=== PATIENT | female | born 1935 | race Caucasian/White ===

== ENCOUNTER 2019-08-23 02:02 | Day surgery (SDC) | payer MEDICARE, SELFPAY ==
[2019-08-22 12:03] VITALS: BMI 26.2
[2019-08-23] MEDS: LACTATED RINGERS 1,000 ML 150 ML IV CONT (10:54)
--- NOTE | 2019-08-23 10:59 | WPDANESEPPF ---
Anes - Initial Pre Proc Eval Procedure: Operation Date: 08/23/19 11:00 Proposed Procedures p Colonoscopy - Baron Bond MD Date/Time: 08/23/19 10:59 Surgeon: Baron Bond MD Pre Op Diagnosis: Rectal Bleeding Patient Data Age: 84 Gender: F Height: 5 ft 2 in Weight: 65 kg Allergies Allergy/AdvReac Type Severity Reaction Status Date / Time codeine Allergy Unknown Chills Verified 08/22/19 11:55 Sulfa (Sulfonamide Allergy Unknown Swelling Verified 08/22/19 11:55 Antibiotics) Home Medications Medication Instructions Recorded Confirmed Type levothyroxine 50 mcg tablet 50 mcg PO DAILY #90 tablet 07/06/19 08/22/19 Rx aspirin 81 mg tablet 81 mg PO DAILY 07/14/19 08/22/19 History labetalol 100 mg tablet 100 mg PO BID #180 tablet 08/15/19 08/22/19 Rx losartan 50 mg-hydrochlorothiazide 1 tablet PO BID #180 tablet 08/15/19 08/22/19 Rx 12.5 mg tablet amlodipine 5 mg tablet 5 mg PO DAILY #30 tablet 08/17/19 08/22/19 Rx lovastatin 20 mg PO HS 08/22/19 08/22/19 History magnesium 250 mg PO DAILY 08/22/19 08/22/19 History Patient hx anesthesia problems: none Family hx anesthesia problems: none PMFSH Past Medical History Medical History HTN (hypertension) Family History Family History Mother Hypertension, Onset Age: 94 Sibling Family history of diabetes mellitus in first degree relative Carcinoma of colon, Onset Age: 81 Patient's sister is Father Family history of coronary artery disease, Onset Age: 66 Patient's father is Social History Social History Smoking status: Never smoker Second hand tobacco smoke exposure: No Alcohol intake: never Anes - Eval Final PreProcedure Day of Procedure 08/23/19 10:59 Patient weight: overweight Heart: regular rate and rhythm Lungs: clear to auscultation Airway: Mallampati scale class II Neurological: alert and oriented Last oral intake: >/= 8 hours ASA classification: III Emergent: no Anesthetic plan: proceed Anesthesia type and monitoring: general GIVS and standard monitoring Informed Consent: The patient's anesthetic plan and its attendant risks and benefits were discussed with the patient/family/POA. Questions were solicited and answers provided to the satisfaction of the patient/family/POA.
[2019-08-23] MEDS: ONDANSETRON INJ 4 MG/2 ML VIAL IV PUSH (11:02)
[2019-08-23 11:05] VITALS: BP 141/61; PULSE 86; RESP 18; TEMP 36.6; O2SAT 97; BMI 25.8
--- NOTE | 2019-08-23 11:37 | WPDHPUPDATE1 ---
History and Physical Update Update Date/Time: 08/23/19 11:37 History and Physical has been reviewed, including an updated exam of the patient. There are NO changes in the patient's condition. Risks, benefits, and alternatives have been discussed and questions answered. Patient agrees to proceed with procedure.
[2019-08-23 12:13] VITALS: BP 116/39; PULSE 75; RESP 17; O2SAT 99
[2019-08-23 12:23] VITALS: BP 113/38; PULSE 72; RESP 20; O2SAT 100
[2019-08-23 12:33] VITALS: BP 121/47; PULSE 72; RESP 24; O2SAT 100
== END 2019-08-23 12:48 | disposition home or self-care (01) ==
PROVIDERS: PCP Emergency Medicine; Visit Provider Internal Medicine Gastroenterology
PROC: 0DJD8ZZ Inspection of Lower Intestinal Tract, Via Natural or Artificial Opening Endoscopic (ICD-10-PCS; CPT 45378; principal; 2019-08-23 11:00)
DX: K62.5 Hemorrhage of anus and rectum (principal); K57.30 Diverticulosis of large intestine without perforation or abscess without bleeding; K64.8 Other hemorrhoids; K64.4 Residual hemorrhoidal skin tags; I10 Essential (primary) hypertension; Z79.82 Long term (current) use of aspirin
CPT/HCPCS: 45378; J2405; J2704; J7120

== ENCOUNTER 2020-02-05 07:49 | Outpatient (CLI) | payer MEDICARE, SELFPAY ==
[2020-02-05 08:32] LABS: Alanine Aminotransferase 25 U/L (4-35); Albumin Level 4.8 g/dL (3.5-5.1); Alkaline Phosphatase 100 U/L (38-126); Anion Gap 13.2 mmol/L (7-16); Aspartate Amino Transferase 27 U/L (14-36); Bilirubin,Total 0.4 mg/dL (0.2-1.3); Blood Urea Nitrogen 19 mg/dL (7-17); Calcium 9.7 mg/dL (8.4-10.2); Carbon Dioxide 28 mmol/L (22-30); Chloride 97 mmol/L (98-107); Cholesterol 178 mg/dL (0-200); Estimated Glomerular Filt Rate 60; Glucose 124 mg/dL (65-105); HDL Direct 42 mg/dL; Potassium 4.2 mmol/L (3.4-5.0); Sodium 134 mmol/L (137-145); Triglycerides 296 mg/dL (<150)
[2020-02-05 08:43] LABS: LDL Cholesterol Direct 80 mg/dL
== END 2020-02-05 07:50 | disposition home or self-care (01) ==
LOC: ANHLAB 07:52
PROVIDERS: PCP Emergency Medicine; Visit Provider Emergency Medicine
DX: E78.5 Hyperlipidemia, unspecified (principal)
CPT/HCPCS: 36415; 80053; 80061

== ENCOUNTER 2020-05-21 07:36 | Outpatient (CLI) | payer MEDICARE, SELFPAY ==
[2020-05-21 08:56] LABS: Alanine Aminotransferase 26 U/L (4-35); Albumin Level 4.7 g/dL (3.5-5.1); Alkaline Phosphatase 100 U/L (38-126); Anion Gap 8 mmol/L (8-16); Aspartate Amino Transferase 30 U/L (14-36); Bilirubin,Total 0.4 mg/dL (0.2-1.3); Blood Urea Nitrogen 18 mg/dL (7-17); Calcium 10.4 mg/dL (8.4-10.2); Carbon Dioxide 32 mmol/L (22-30); Chloride 97 mmol/L (98-107); Cholesterol 163 mg/dL (0-200); Estimated Glomerular Filt Rate 53; Glucose 125 mg/dL (65-105); Potassium 4.1 mmol/L (3.4-5.0); Sodium 137 mmol/L (137-145)
== END 2020-05-21 07:37 | disposition home or self-care (01) ==
PROVIDERS: PCP Emergency Medicine; Referring Provider Internal Medicine Cardiovascular Disease; Visit Provider Emergency Medicine
DX: I10 Essential (primary) hypertension (principal); E78.2 Mixed hyperlipidemia
CPT/HCPCS: 36415; 80053; 82465

== ENCOUNTER 2020-09-03 07:19 | Outpatient (CLI) | payer MEDICARE, SELFPAY ==
[2020-09-03 07:55] LABS: Alanine Aminotransferase 21 U/L (4-35); Albumin Level 4.6 g/dL (3.5-5.1); Alkaline Phosphatase 87 U/L (38-126); Anion Gap 6 mmol/L (8-16); Aspartate Amino Transferase 28 U/L (14-36); Bilirubin,Total 0.4 mg/dL (0.2-1.3); Blood Urea Nitrogen 17 mg/dL (7-17); Calcium 9.8 mg/dL (8.4-10.2); Carbon Dioxide 34 mmol/L (22-30); Chloride 99 mmol/L (98-107); Cholesterol 173 mg/dL (0-200); Estimated Glomerular Filt Rate 60; Glucose 119 mg/dL (65-105); HDL Direct 46 mg/dL; Potassium 4.3 mmol/L (3.4-5.0); Sodium 139 mmol/L (137-145); Triglycerides 177 mg/dL (<150)
[2020-09-03 07:57] LABS: Hemoglobin A1C 5.6 % (<5.7)
[2020-09-03 08:06] LABS: LDL Cholesterol Direct 91 mg/dL
== END 2020-09-03 07:20 | disposition home or self-care (01) ==
PROVIDERS: PCP Emergency Medicine; Referring Provider Internal Medicine Cardiovascular Disease; Visit Provider Emergency Medicine
DX: E78.5 Hyperlipidemia, unspecified (principal); E11.9 Type 2 diabetes mellitus without complications; I10 Essential (primary) hypertension
CPT/HCPCS: 36415; 80053; 80061; 83036

== ENCOUNTER 2020-09-09 11:01 | Outpatient (CLI) | payer MEDICARE, SELFPAY ==
--- NOTE | ~2020-09-09 | US_ITS ---
EXAMINATION: US venous doppler LE EXAM DATE: 09/09/2020 11:43 INDICATION: Right calf pain. TECHNIQUE: Multiple grayscale, color flow and Doppler images of the right lower extremity deep venous system were obtained and reviewed. Comparison is made to prior examination from 06/28/2013. FINDINGS: The right common femoral, femoral and profunda veins demonstrate normal color flow, respira tory variation, augmentation and compressibility. Compressibility, color flow confirmed within the r ight popliteal, posterior tibial, peroneal, and greater saphenous veins. IMPRESSION: 1. No right lower extremity deep venous thrombosis. Reviewed, dictated and finalized at location A. ET TECHNICIAN
== END 2020-09-09 11:02 | disposition home or self-care (01) ==
PROVIDERS: PCP Emergency Medicine; Visit Provider Internal Medicine Cardiovascular Disease
DX: R60.9 Edema, unspecified (principal)
CPT/HCPCS: 93971

== ENCOUNTER → 2020-10-07 10:49 | Outpatient (CLI) | payer MEDICARE, SELFPAY ==
--- NOTE | ~2020-10-07 | XR_ITS ---
. EXAMINATION: XR tibia fibula RT 2V DATE: 10/07/2020 11:17 INDICATION: Myalgia at the anterior to medial side of the right lower leg. TECHNIQUE: AP and lateral views of the right lower leg were obtained. COMPARISON: Right knee radiographs dated 03/02/2014 FINDINGS: Bone alignment is normal. No fracture. Joint space at the right knee, ankle and visualized mid and hindfoot appear normal. No periosteal reaction, cortical erosions or suspicious lytic or guillermo tic bone lesions. Soft tissues are unremarkable. IMPRESSION: 1. Negative right tibia/fibula radiographs. Reviewed, dictated and finalized at location A.
== END ==
PROVIDERS: PCP Emergency Medicine; Visit Provider Emergency Medicine
DX: M79.10 Myalgia, unspecified site (principal)
CPT/HCPCS: 73590

== ENCOUNTER 2020-10-07 12:20 | Outpatient (CLI) | payer MEDICARE, SELFPAY ==
[2020-10-07 12:43] LABS: Creatine Kinase 112 U/L (30-135)
== END 2020-10-07 12:21 | disposition home or self-care (01) ==
LOC: ANHLAB 12:21
PROVIDERS: PCP Emergency Medicine; Visit Provider Emergency Medicine
DX: E78.2 Mixed hyperlipidemia (principal)
CPT/HCPCS: 36415; 82550

== ENCOUNTER 2021-04-01 08:06 | Outpatient (CLI) | payer MEDICARE, OTHER, SELFPAY ==
[2021-04-01 08:51] LABS: Alanine Aminotransferase 21 U/L (4-35); Albumin Level 4.8 g/dL (3.5-5.1); Alkaline Phosphatase 104 U/L (38-126); Anion Gap 10 mmol/L (8-16); Aspartate Amino Transferase 24 U/L (14-36); Bilirubin,Total 0.5 mg/dL (0.2-1.3); Blood Urea Nitrogen 19 mg/dL (7-17); Calcium 10.4 mg/dL (8.4-10.2); Carbon Dioxide 30 mmol/L (22-30); Chloride 100 mmol/L (98-107); Cholesterol 267 mg/dL (0-200); Estimated Glomerular Filt Rate 59; Glucose 124 mg/dL (65-110); HDL Direct 47 mg/dL; Potassium 4.4 mmol/L (3.4-5.0); Sodium 140 mmol/L (137-145); Triglycerides 230 mg/dL (<150)
[2021-04-01 09:01] LABS: LDL Cholesterol Direct 140 mg/dL
== END 2021-04-01 08:07 | disposition home or self-care (01) ==
PROVIDERS: PCP Emergency Medicine; Referring Provider Internal Medicine Cardiovascular Disease; Visit Provider Emergency Medicine
DX: E78.2 Mixed hyperlipidemia (principal); I10 Essential (primary) hypertension
CPT/HCPCS: 36415; 80053; 80061

== ENCOUNTER → 2021-05-27 13:02 | Outpatient (CLI) | payer MEDICARE, OTHER, SELFPAY ==
--- NOTE | ~2021-05-27 | MM_ITS ---
EXAMINATION: MM screening [facility] BI w glenna HISTORY: Screening mammogram TECHNIQUE: Craniocaudal and mediolateral oblique 3-D tomosynthesis images were obtained and synthetic 2-D images were generated. CAD analysis was submitted and interpreted. COMPARISON: 05/01/2019, 04/07/2017 BREAST PARENCHYMAL COMPOSITION: There are scattered areas of fibroglandular density. FINDINGS: Scattered benign-appearing calcifications are present. There is no evidence of suspicious m ass, calcification, or architectural distortion to suggest malignancy in either breast. There has bee n no suspicious interval change. IMPRESSION: 1. No mammographic evidence of malignancy. 2. Recommend routine screening mammography in one year. BI-RADS Category 2: Benign finding(s). Reviewed, dictated and finalized at location A. CONTROL PRODUCT LIABILITY DIRECTOR
== END ==
PROVIDERS: PCP Emergency Medicine; Visit Provider Emergency Medicine
DX: Z12.31 Encounter for screening mammogram for malignant neoplasm of breast (principal)
CPT/HCPCS: 77063; 77067

== ENCOUNTER → 2021-07-31 01:58 | Outpatient (CLI) | payer MEDICARE, OTHER, SELFPAY ==
[2021-07-31 21:12] LABS: SARS-CoV-2 RNA PCR Negative
== END ==
PROVIDERS: PCP Emergency Medicine; Visit Provider Emergency Medicine
DX: R19.7 Diarrhea, unspecified (principal); R11.0 Nausea; Z20.822 Contact with and (suspected) exposure to COVID-19
CPT/HCPCS: C9803; U0003; U0005

== ENCOUNTER 2021-08-12 08:00 | Outpatient (CLI) | payer MEDICARE, OTHER, SELFPAY ==
[2021-08-12 09:05] LABS: Alanine Aminotransferase 25 U/L (4-35); Albumin Level 4.4 g/dL (3.5-5.1); Alkaline Phosphatase 116 U/L (38-126); Anion Gap 6 mmol/L (8-16); Aspartate Amino Transferase 30 U/L (14-36); Bilirubin,Total 0.4 mg/dL (0.2-1.3); Blood Urea Nitrogen 17 mg/dL (7-17); Calcium 9.7 mg/dL (8.4-10.2); Carbon Dioxide 30 mmol/L (22-30); Chloride 98 mmol/L (98-107); Cholesterol 146 mg/dL (0-200); Estimated Glomerular Filt Rate 53; Glucose 134 mg/dL (65-110); HDL Direct 38 mg/dL; Sodium 134 mmol/L (137-145); Triglycerides 148 mg/dL (<150)
[2021-08-12 09:16] LABS: LDL Cholesterol Direct 72 mg/dL
== END 2021-08-12 08:01 | disposition home or self-care (01) ==
LOC: ANHLAB 08:03
PROVIDERS: PCP Emergency Medicine; Visit Provider Emergency Medicine
DX: I10 Essential (primary) hypertension (principal); E03.9 Hypothyroidism, unspecified
CPT/HCPCS: 36415; 80053; 80061; 84443

== ENCOUNTER 2021-12-16 07:17 | Outpatient (CLI) | payer MEDICARE, OTHER, SELFPAY ==
[2021-12-16 08:04] LABS: Hemoglobin A1C 6.1 % (<5.7)
[2021-12-16 08:06] LABS: Alanine Aminotransferase 21 U/L (6-35); Albumin Level 4.7 g/dL (3.5-5.1); Alkaline Phosphatase 93 U/L (38-126); Anion Gap 6 mmol/L (8-16); Aspartate Amino Transferase 25 U/L (14-36); Bilirubin,Total 0.4 mg/dL (0.2-1.3); Blood Urea Nitrogen 13 mg/dL (7-17); Calcium 9.6 mg/dL (8.4-10.2); Carbon Dioxide 32 mmol/L (22-30); Chloride 97 mmol/L (98-107); Cholesterol 173 mg/dL (0-200); Estimated Glomerular Filt Rate 59; Glucose 118 mg/dL (65-110); HDL Direct 47 mg/dL; Potassium 4.3 mmol/L (3.4-5.0); Sodium 135 mmol/L (137-145); Triglycerides 191 mg/dL (<150)
[2021-12-16 08:17] LABS: LDL Cholesterol Direct 81 mg/dL
== END 2021-12-16 07:18 | disposition home or self-care (01) ==
PROVIDERS: PCP Emergency Medicine; Visit Provider Emergency Medicine
DX: I10 Essential (primary) hypertension (principal); E03.9 Hypothyroidism, unspecified; E78.2 Mixed hyperlipidemia; R73.09 Other abnormal glucose
CPT/HCPCS: 36415; 80053; 80061; 83036; 84443

== ENCOUNTER 2022-04-14 06:40 | Outpatient (CLI) | payer MEDICARE, OTHER, SELFPAY ==
[2022-04-14 07:12] LABS: Alanine Aminotransferase 33 U/L (6-35); Albumin Level 4.8 g/dL (3.5-5.1); Alkaline Phosphatase 110 U/L (38-126); Anion Gap 10 mmol/L (8-16); Aspartate Amino Transferase 32 U/L (14-36); Bilirubin,Total 0.4 mg/dL (0.2-1.3); Blood Urea Nitrogen 13 mg/dL (7-17); Calcium 9.9 mg/dL (8.4-10.2); Carbon Dioxide 31 mmol/L (22-30); Chloride 97 mmol/L (98-107); Cholesterol 169 mg/dL (0-200); Estimated Glomerular Filt Rate 59; Glucose 128 mg/dL (65-110); HDL Direct 45 mg/dL; Potassium 3.9 mmol/L (3.4-5.0); Sodium 138 mmol/L (137-145); Triglycerides 138 mg/dL (<150)
[2022-04-14 07:23] LABS: LDL Cholesterol Direct 91 mg/dL
[2022-04-14 08:11] LABS: Hemoglobin A1C 5.9 % (<5.7)
== END 2022-04-14 06:41 | disposition home or self-care (01) ==
LOC: ANHLAB 06:44
PROVIDERS: PCP Emergency Medicine; Visit Provider Emergency Medicine
DX: E78.5 Hyperlipidemia, unspecified (principal); R73.9 Hyperglycemia, unspecified; I10 Essential (primary) hypertension
CPT/HCPCS: 36415; 80053; 80061; 83036

== ENCOUNTER 2022-10-27 07:42 | Outpatient (CLI) | payer MEDICARE, OTHER, SELFPAY ==
[2022-10-27 08:10] LABS: Hemoglobin A1C 6.1 % (<5.7)
[2022-10-27 08:11] LABS: Alanine Aminotransferase 30 U/L (6-35); Albumin Level 5.1 g/dL (3.5-5.1); Alkaline Phosphatase 106 U/L (38-126); Anion Gap 7 mmol/L (8-16); Aspartate Amino Transferase 31 U/L (14-36); Bilirubin,Total 0.5 mg/dL (0.2-1.3); Blood Urea Nitrogen 17 mg/dL (7-17); Calcium 9.8 mg/dL (8.4-10.2); Carbon Dioxide 34 mmol/L (22-30); Chloride 96 mmol/L (98-107); Cholesterol 193 mg/dL (0-200); Estimated Glomerular Filt Rate 59; Glucose 130 mg/dL (65-110); HDL Direct 43 mg/dL; Potassium 4.3 mmol/L (3.4-5.0); Sodium 137 mmol/L (137-145); Triglycerides 264 mg/dL (<150)
[2022-10-27 08:22] LABS: LDL Cholesterol Direct 98 mg/dL
== END 2022-10-27 07:43 | disposition home or self-care (01) ==
PROVIDERS: PCP Emergency Medicine; Visit Provider Emergency Medicine
DX: E03.9 Hypothyroidism, unspecified (principal); I10 Essential (primary) hypertension; R73.9 Hyperglycemia, unspecified; E78.5 Hyperlipidemia, unspecified
CPT/HCPCS: 36415; 80053; 80061; 83036; 84443

== ENCOUNTER 2023-05-04 07:49 | Outpatient (CLI) | payer MEDICARE, SELFPAY ==
[2023-05-04 08:51] LABS: Alanine Aminotransferase 17 U/L (14-59); Albumin Level 4.3 g/dL (3.4-5.0); Alkaline Phosphatase 114 U/L (46-116); Anion Gap 9 mmol/L (8-16); Aspartate Amino Transferase 13 U/L (15-37); Bilirubin,Total 0.4 mg/dL (0.00-1.00); Blood Urea Nitrogen 13 mg/dL (7-18); Carbon Dioxide 32 mmol/L (21-32); Chloride 100 mmol/L (98-108); Cholesterol 232 mg/dL (0-200); Estimated Glomerular Filt Rate 58; Glucose 121 mg/dL (70-99); HDL Direct 49 mg/dL (40-60); LDL Cholesterol Calculated 159 mg/dL (<130); Osmolality Calculated 293 mOsm/kg (285-295); Potassium 4.2 mmol/L (3.5-5.1); Sodium 141 mmol/L (136-145); Triglycerides 118 mg/dL (0-150)
[2023-05-07 12:48] LABS: Vitamin D 1,25 (OH)2 Total 45 pg/mL (18-72); Vitamin D2 1,25 (OH)2 <8 pg/mL; Vitamin D3 1,25 (OH)2 45 pg/mL
== END 2023-05-04 07:50 | disposition home or self-care (01) ==
LOC: CHSLAB 07:51
PROVIDERS: PCP Emergency Medicine; Visit Provider Emergency Medicine
DX: E78.5 Hyperlipidemia, unspecified (principal); I10 Essential (primary) hypertension; E55.9 Vitamin D deficiency, unspecified
CPT/HCPCS: 36415; 80053; 80061; 82652

== ENCOUNTER → 2023-05-12 12:28 | Outpatient (CLI) | payer MEDICARE, OTHER, SELFPAY ==
--- NOTE | ~2023-05-12 | XR_ITS ---
EXAMINATION: XR abdomen obstructive series DATE: 05/12/2023 13:20 INDICATION: Diarrhea TECHNIQUE: Supine and upright views of the abdomen. FINDINGS: 12/22/2017 The visualized lung parenchyma is normal.. There is a nonobstructive bowel gas pattern. Gas and stool are seen throughout the colon to the level of the rectum. There is no free air. There are pelvic ph leboliths. There is scoliosis. IMPRESSION: 1. No acute abdominal abnormality. Reviewed, dictated and finalized at location B.
== END ==
PROVIDERS: PCP Emergency Medicine; Visit Provider Emergency Medicine
DX: R19.7 Diarrhea, unspecified (principal)
CPT/HCPCS: 74019

== ENCOUNTER 2023-05-24 14:50 | Outpatient (CLI) | payer MEDICARE, OTHER, SELFPAY ==
[2023-05-24 15:40] LABS: CRP 0.9 mg/dL (<1.0)
[2023-05-24 15:47] LABS: Erythrocyte Sedimentation Rate 16 mm/hr (0-20)
[2023-05-27 04:00] LABS: Tissue Transglutaminase IgA Ab <1.0 U/mL (<15.0)
[2023-05-27 12:01] LABS: Tissue Transglutaminase IgG Ab <1.0 U/mL (<15.0)
== END 2023-05-24 14:51 | disposition home or self-care (01) ==
PROVIDERS: PCP Emergency Medicine; Visit Provider Internal Medicine Gastroenterology
DX: R19.5 Other fecal abnormalities (principal)
CPT/HCPCS: 36415; 85652; 86140; 86364

== ENCOUNTER 2023-10-20 14:06 | Outpatient (CLI) | payer MEDICARE, OTHER, SELFPAY ==
--- NOTE | ~2023-10-20 | XR_ITS ---
EXAMINATION: XR elbow RT 2V DATE: 10/20/2023 14:30 INDICATION: Right elbow pain. TECHNIQUE: 2 views of right elbow were obtained. COMPARISON: None. FINDINGS: Bone alignment is normal. No fracture. Joint spaces are normal. There is an enthesophyte at lateral humeral epicondyle. No elbow joint effusion. IMPRESSION: 1. No fracture. Reviewed, dictated and finalized at location A. IMPRESSION: 1. No fracture.
--- NOTE | ~2023-10-20 | XR_ITS ---
EXAMINATION: XR shoulder RT min 2V DATE: 10/20/2023 14:30 INDICATION: Right shoulder pain. TECHNIQUE: 4 views of right shoulder were obtained. COMPARISON: None. FINDINGS: Bone alignment is normal. No fracture. Glenohumeral joint is normal. There is mild acromioc lavicular joint osteoarthritis. IMPRESSION: 1. Mild acromioclavicular joint osteoarthritis. Reviewed, dictated and finalized at location A.
== END 2023-10-20 14:07 ==
PROVIDERS: PCP Emergency Medicine; Visit Provider Emergency Medicine
DX: M25.521 Pain in right elbow (principal); M25.511 Pain in right shoulder; M19.011 Primary osteoarthritis, right shoulder
CPT/HCPCS: 73030; 73070

== ENCOUNTER 2023-11-02 08:04 | Outpatient (CLI) | payer MEDICARE, SELFPAY ==
[2023-11-02 09:05] LABS: Alanine Aminotransferase 30 U/L (14-59); Albumin Level 4.2 g/dL (3.4-5.0); Alkaline Phosphatase 109 U/L (46-116); Anion Gap 6 mmol/L (4-12); Aspartate Amino Transferase 26 U/L (15-37); Bilirubin,Total 0.4 mg/dL (0.00-1.00); Blood Urea Nitrogen 16 mg/dL (7-18); Calcium 9.4 mg/dL (8.5-10.1); Carbon Dioxide 35 mmol/L (21-32); Chloride 100 mmol/L (98-108); Cholesterol 245 mg/dL (0-200); Estimated Glomerular Filt Rate 60; Glucose 112 mg/dL (70-99); HDL Direct 52 mg/dL (40-60); LDL Cholesterol Calculated 172 mg/dL (<130); Osmolality Calculated 294 mOsm/kg (285-295); Potassium 4.2 mmol/L (3.5-5.1); Sodium 141 mmol/L (136-145); Thyroid Stimulating Hormone 1.27 uIU/mL (0.36-3.74); Total Protein 6.8 g/dL (6.4-8.2); Triglycerides 107 mg/dL (0-150)
[2023-11-04 01:43] LABS: Vitamin D 25 Hydroxy 15 ng/mL (30-100)
== END 2023-11-02 08:05 | disposition home or self-care (01) ==
LOC: CHSLAB 08:06
PROVIDERS: PCP Emergency Medicine; Visit Provider Emergency Medicine
DX: E03.9 Hypothyroidism, unspecified (principal); I10 Essential (primary) hypertension; E78.5 Hyperlipidemia, unspecified; E55.9 Vitamin D deficiency, unspecified
CPT/HCPCS: 36415; 80053; 80061; 82306; 84443

== ENCOUNTER 2023-11-20 09:32 | Outpatient (CLI) | payer MEDICARE, OTHER, SELFPAY ==
--- NOTE | ~2023-11-20 | MR_ITS ---
EXAMINATION: MR elbow RT wo con DATE: 11/20/2023 10:57 INDICATION: Right elbow pain. TECHNIQUE: Magnetic resonance imaging (MRI) of the right elbow elbow was performed without intravenou s contrast. Sequences included coronal, axial, and sagittal PD-weighted FS FSE and coronal, axial, an d sagittal PD-weighted FSE. COMPARISON: Right elbow radiographs 10/20/2023 FINDINGS: Osseous/other: Bone alignment is normal. No fracture. There is chondrosis in the elbow joint including full-thicknes s cartilage loss of the olecranon and trochlea with mild subchondral edema-like marrow signal intensi ty of trochlea. Tendons: Brachialis tendon is normal. Biceps tendon is intact. There is mild common flexor and common extensor tendinopathy. Ligaments: Radial collateral ligament, lateral ulnar collateral ligament, and ulnar collateral ligament are inta ct. Cubital tunnel: Ulnar nerve is normal. Fluid: There is a small elbow joint effusion. IMPRESSION: 1. Severe elbow joint chondrosis. 2. Mild tendinopathy of the common flexor and common extensor tendons. 3. Small elbow joint effusion. Reviewed, dictated and finalized at location E.
--- NOTE | ~2023-11-20 | MR_ITS ---
EXAMINATION: MR humerus RT wo con DATE: 11/20/2023 10:52 INDICATION: Right arm pain. Fall. TECHNIQUE: Magnetic resonance imaging (MRI) of the right humerus was performed without intravenous co ntrast. COMPARISON: Right shoulder radiographs 10/20/2023 FINDINGS: Bone alignment is normal. No fracture. There is severe acromioclavicular joint chondrosis. Biceps tendon is in bicipital groove. There is moderate subacromial/subdeltoid bursitis. IMPRESSION: 1. Moderate subacromial/subdeltoid bursitis. 2. Severe acromioclavicular joint chondrosis. Reviewed, dictated and finalized at location E.
== END 2023-11-20 09:33 ==
PROVIDERS: PCP Emergency Medicine; Visit Provider Emergency Medicine
DX: M19.021 Primary osteoarthritis, right elbow (principal); M75.51 Bursitis of right shoulder
CPT/HCPCS: 73218; 73221

== ENCOUNTER 2024-01-03 10:22 | Outpatient (RCR) | payer MEDICARE, OTHER, SELFPAY ==
--- NOTE | 2024-01-03 11:11 | PTOPEVAL1 ---
Assessment and note entered by Pierce Mandujano Evaluation Information Assessment Status Evaluation Diagnosis right shoulder pain Onset 10/10/23 Subjective Information Pt. reports she fell Easter Wednesday. She reports that she underwent x-ray and MRI after falling on the shoulder. She reports she went to the specialist and received a cortisone injection. She reports that MRI showed possible rotator cuff tear. She reports she has pain described in the right elbow and right lateral brachial region. She reports that she cannot lean on the right elbow or lift anything of significant weight. She states that pain is not an issue at night since her cortisone injection. She reports that she has to lift her right arm with the left arm to do her hair. She reports pain increases attempting to lift the arm about described 90 degrees shoulder flexion. She reports that her goal is to decrease her right shoulder pain. She is right hand dominant. Reported Pain Level Pain Score 6: Self Report Assessment PT Clinical Summary Pt. is an 88 year old female who enters the clinic with right shoulder pain due to rotator cuff syndrome. She presents with impaired right shoulder strength and ROM, as well as pain on this date. Continued skilled PT is indicated in order to improve these areas to assist with pt. regains normal right u.e. function and be able to perform overhead lifting with the right u.e. Plan of Care Interventions Electrical Stimulation,Hot Pack/Cold Pack,Manual Therapy,Neuro Re-education,Patient/Caregiver Educati,Therapeutic Activities,Therapeutic Exercise PT Services Indicated Yes Treatment Frequency and 2x/week x 10 visits Duration These treatments will address the objective and functional deficits as defined above. The patient will be advanced safely and appropriately in order for the patient to progress towards his/her prior level of function. Additional exercises will be introduced and as well as a comprehensive home exercise program upon discharge, if needed, ?to ensure carryover of functional gains achieved in the clinic. This treatment plan has been reviewed and agreement upon by the patient.
--- NOTE | 2024-01-03 11:19 | OPREHPOC ---
Outpatient Therapy Plan of Care This is a Multidisciplinary Plan of Care that may contain components documented by all disciplines (PT, OT, and ST.) PT Problem 1 PT Problem #1 Knowledge Deficit PT Goal 1 Goal Independent with a HEP addressing mobility bahai. Target Visit 2 PT Problem 2 PT Problem #2 Pain PT Goal 1 Goal Pt. will report pain reduction to 2/10 at worst with overhead reaching activities. Target Visit 10 PT Problem 3 PT Problem #3 Impaired Range of Motion PT Goal 1 Goal Pt. will achieve 145 degrees active right shoulder flexion against gravity Pt. will demonstrate ability to reach the mid thoracic region with the right u.e. into IR to allow for ease of grooming. Target Visit 10 PT Problem 4 PT Problem #4 Impaired Strength PT Goal 1 Goal Pt. will lift 2-3# overhead with the right u.e. for 10 reps with 1-2/10 pain at worst Target Visit 10
--- NOTE | 2024-02-04 11:29 | OPREHPOC ---
Outpatient Therapy Plan of Care This is a Multidisciplinary Plan of Care that may contain components documented by all disciplines (PT, OT, and ST.) PT Problem 1 PT Problem #1 Knowledge Deficit PT Goal 1 Goal Independent with a HEP addressing mobility roman catholic. Target Visit 2 Progress Met PT Problem 2 PT Problem #2 Pain PT Goal 1 Goal Pt. will report pain reduction to 2/10 at worst with overhead reaching activities. Target Visit 14 Progress Not Met PT Problem 3 PT Problem #3 Impaired Range of Motion PT Goal 1 Goal Pt. will achieve 145 degrees active right shoulder flexion against gravity Pt. will demonstrate ability to reach the mid thoracic region with the right u.e. into IR to allow for ease of grooming. Target Visit 14 Progress Not Met PT Problem 4 PT Problem #4 Impaired Strength PT Goal 1 Goal Pt. will lift 2-3# overhead with the right u.e. for 10 reps with 1-2/10 pain at worst. (able to lift 1# overhead, but with pain - unable to lift 2 #) Target Visit 14 Progress Not Met
--- NOTE | 2024-02-04 11:29 | PTOPREEVAL ---
Assessment and note entered by JT File, PT Evaluation Information Assessment Status Re-evaluation Diagnosis right shoulder pain Onset 10/10/23 Subjective Information patient reports she continues to have pain in the R shoulder and along the outside of the R arm. she reports she still is unable to lift any objects more than a coffee cup with the R arm due to pain. she reports she has no interest in another MRI or surgery of the R shoulder. she reports she did feel a bit better after the dry needling last treatment. she reports she is also unable to lay on the R side due to pain. Reported Pain Level Pain Score 4: Self Report Assessment PT Clinical Summary mrs. cabrera presents to skilled PT services for her 10th skilled therapy visit this date. she reports continued pain in the R shoulder/UE, but reports it is reducing from the elbow to around the shoulder and mid upper arm only. she displays improved R shoulder active flexion, but still limited functional IR and ER. patient reports reduced symptoms after trial of dry needling last session. she lacks achievement of strength, functional, and pain goals still. she would benefit from continued skilled PT to address her remaining objective/functional deficits and continue with treatment progression/dry needling to reduce patients pain/symptoms and achieve goals . Plan of Care Interventions Electrical Stimulation,Hot Pack/Cold Pack,Manual Therapy,Neuro Re-education,Patient/Caregiver Educati,Therapeutic Activities,Therapeutic Exercise PT Services Indicated Yes Treatment Frequency and continue skilled PT 2x weekly for 4 more visits Duration These treatments will address the objective and functional deficits as defined above. The patient will be advanced safely and appropriately in order for the patient to progress towards his/her prior level of function. Additional exercises will be introduced and as well as a comprehensive home exercise program upon discharge, if needed, ?to ensure carryover of functional gains achieved in the clinic. This treatment plan has been reviewed and agreement upon by the patient.
--- NOTE | 2024-02-17 13:13 | OPREHPOC ---
Outpatient Therapy Plan of Care This is a Multidisciplinary Plan of Care that may contain components documented by all disciplines (PT, OT, and ST.) PT Problem 1 PT Problem #1 Knowledge Deficit PT Goal 1 Goal Independent with a HEP addressing mobility restorationism. Target Visit 2 Progress Met PT Problem 2 PT Problem #2 Pain PT Goal 1 Goal Pt. will report pain reduction to 2/10 at worst with overhead reaching activities. Target Visit 14 Progress Not Met PT Problem 3 PT Problem #3 Impaired Range of Motion PT Goal 1 Goal Pt. will achieve 145 degrees active right shoulder flexion against gravity Pt. will demonstrate ability to reach the mid thoracic region with the right u.e. into IR to allow for ease of grooming. Target Visit 14 Progress Not Met PT Problem 4 PT Problem #4 Impaired Strength PT Goal 1 Goal Pt. will lift 2-3# overhead with the right u.e. for 10 reps with 1-2/10 pain at worst. (able to lift 1# overhead, but with pain - unable to lift 2 #) Target Visit 14 Progress Not Met
--- NOTE | 2024-02-17 13:14 | PTOPDC ---
Assessment and note entered by JT File, PT Evaluation Information Assessment Status Discharge Diagnosis right shoulder pain ICD-10 Condition Codes (PT) M25.511 Onset 10/10/23 Subjective Information patient reports the R shoulder feels alright today. she reports she continues to have increased pain with increased use of the R shoulder. she reports laying on her back trying to rest the shoulder increases her pain. she reports since her last re-evaluation she believes it is better. she reports she did sweep some floors yesterday, and reports she paid for this last night. Reported Pain Level Pain Score 3: Self Report Assessment PT Clinical Summary mrs. cabrera presents to skilled PT for her 14th skilled PT visit today. she has made some progress towards reducing shoulder pain, but pain continues to persist with increased activities. she has met goal for HEP performance, but no other goals as of this date. she is still unable to functional lift/reach overhead, and is limited in functional reaching behind back. at this time, patient will DC skilled PT due to a lack of significant improvement, and return to see MD about further options for the shoulder. Plan of Care PT Services Indicated Yes
== END 2024-02-17 14:03 | disposition home or self-care (01) ==
LOC: CHSPT 10:22
PROVIDERS: PCP Emergency Medicine; Visit Provider Orthopaedic Surgery
DX: M25.511 Pain in right shoulder (principal); M79.601 Pain in right arm; M75.80 Other shoulder lesions, unspecified shoulder; M75.90 Shoulder lesion, unspecified, unspecified shoulder; M77.8 Other enthesopathies, not elsewhere classified
CPT/HCPCS: 97014; 97110; 97140; 97161; G0283

== ENCOUNTER 2024-02-22 08:29 | Outpatient (CLI) | payer MEDICARE, OTHER, SELFPAY ==
[2024-02-22 09:34] LABS: Alanine Aminotransferase 22 U/L (14-59); Albumin Level 4.2 g/dL (3.4-5.0); Alkaline Phosphatase 93 U/L (46-116); Anion Gap 7 mmol/L (4-12); Aspartate Amino Transferase 15 U/L (15-37); Bilirubin,Total 0.4 mg/dL (0.00-1.00); Blood Urea Nitrogen 16 mg/dL (7-18); Calcium 9.7 mg/dL (8.5-10.1); Carbon Dioxide 32 mmol/L (21-32); Chloride 98 mmol/L (98-108); Cholesterol 264 mg/dL (0-200); Estimated Glomerular Filt Rate 56; Glucose 116 mg/dL (70-99); HDL Direct 46 mg/dL (40-60); LDL Cholesterol Calculated 180 mg/dL (<130); Osmolality Calculated 286 mOsm/kg (285-295); Potassium 4.1 mmol/L (3.5-5.1); Sodium 137 mmol/L (136-145); Total Protein 6.7 g/dL (6.4-8.2); Triglycerides 189 mg/dL (0-150)
== END 2024-02-22 08:30 | disposition home or self-care (01) ==
PROVIDERS: PCP Emergency Medicine; Visit Provider Internal Medicine Cardiovascular Disease
DX: E78.2 Mixed hyperlipidemia (principal)
CPT/HCPCS: 36415; 80053; 80061

== ENCOUNTER 2024-05-02 07:56 | Outpatient (CLI) | payer MEDICARE, OTHER, SELFPAY ==
[2024-05-02 08:46] LABS: Alanine Aminotransferase 29 U/L (14-59); Albumin Level 3.9 g/dL (3.4-5.0); Alkaline Phosphatase 107 U/L (46-116); Anion Gap 8 mmol/L (4-12); Aspartate Amino Transferase 13 U/L (15-37); Bilirubin,Total 0.4 mg/dL (0.00-1.00); Blood Urea Nitrogen 12 mg/dL (7-18); Calcium 9.5 mg/dL (8.5-10.1); Carbon Dioxide 31 mmol/L (21-32); Chloride 98 mmol/L (98-108); Cholesterol 241 mg/dL (0-200); Estimated Glomerular Filt Rate > 60; Glucose 106 mg/dL (70-99); HDL Direct 56 mg/dL (40-60); LDL Cholesterol Calculated 153 mg/dL (<130); Osmolality Calculated 283 mOsm/kg (285-295); Potassium 4.2 mmol/L (3.5-5.1); Sodium 137 mmol/L (136-145); Thyroid Stimulating Hormone 1.95 uIU/mL (0.36-3.74); Total Protein 6.4 g/dL (6.4-8.2); Triglycerides 158 mg/dL (0-150)
[2024-05-03 12:04] LABS: Vitamin D 25 Hydroxy 84 ng/mL (30-100)
== END 2024-05-02 07:57 | disposition home or self-care (01) ==
PROVIDERS: PCP Emergency Medicine; Visit Provider Emergency Medicine
DX: I10 Essential (primary) hypertension (principal); E03.9 Hypothyroidism, unspecified; E55.9 Vitamin D deficiency, unspecified; E78.5 Hyperlipidemia, unspecified
CPT/HCPCS: 36415; 80053; 80061; 82306; 84443

== ENCOUNTER 2024-10-25 08:00 | Outpatient (CLI) | payer MEDICARE, SELFPAY ==
--- OUTSIDE RECORDS SUMMARY | 2024-10-25 08:14 | XMS_ITS | Clinical Summary ---
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 Pulse 76 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 Temperature - - Respiratory Rate - - Oxygen Saturation - - Inhaled Oxygen Concentration - - Weight 64.9 kg (143 lb) 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 Height 157.5 cm (5' 2 ) 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 Body Mass Index 26.16 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 Plan of Treatment Health Maintenance Due Date Last Done Comments DTaP, Tdap and Td Vaccines ( 1 - Tdap) 1954 Zoster Vaccines (1 of 2) 1985 Pneumococcal Vaccine: 50+ Ye ars (1 of 1 - PCV) 02/15/2000 RSV Immunization or 60+ Years (1 - 1-dose 75+ series) 2010 COVID-19 Vaccine ( - 2023-2 5 season) 2024 Meningococcal B Vaccine Aged Out No l onger eligible based on patient's age to complete this topic Meningococcal Vaccine Aged Out No kenya laney eligible based on patient's age to complete this topic RSV Immunizations Under 20 Months Aged Out No longer eligible based on patient's age to complete this topic
[2024-10-25 08:50] LABS: Alanine Aminotransferase 25 U/L (14-59); Albumin Level 4.2 g/dL (3.4-5.0); Alkaline Phosphatase 106 U/L (46-116); Anion Gap 9 mmol/L (4-12); Aspartate Amino Transferase 13 U/L (15-37); Bilirubin,Total 0.6 mg/dL (0.00-1.00); Blood Urea Nitrogen 19 mg/dL (7-18); Calcium 9.6 mg/dL (8.5-10.1); Carbon Dioxide 30 mmol/L (21-32); Chloride 99 mmol/L (98-108); Cholesterol 238 mg/dL (0-200); Estimated Glomerular Filt Rate 47; Glucose 118 mg/dL (70-99); HDL Direct 51 mg/dL (40-60); LDL Cholesterol Calculated 162 mg/dL (<130); Osmolality Calculated 289 mOsm/kg (285-295); Potassium 4.4 mmol/L (3.5-5.1); Sodium 138 mmol/L (136-145); Total Protein 6.9 g/dL (6.4-8.2); Triglycerides 126 mg/dL (0-150)
[2024-10-27 08:19] LABS: Vitamin D 25 Hydroxy 64 ng/mL (30-100)
== END 2024-10-25 08:01 | disposition home or self-care (01) ==
PROVIDERS: PCP Emergency Medicine; Visit Provider Emergency Medicine
DX: E78.5 Hyperlipidemia, unspecified (principal); E55.9 Vitamin D deficiency, unspecified; I10 Essential (primary) hypertension
CPT/HCPCS: 36415; 80053; 80061; 82306